=== PATIENT | male | born 1940 | race Caucasian/White ===

== ENCOUNTER 2024-08-01 07:01 | Emergency (ER) | payer OTHER, SELFPAY ==
[2024-08-01 07:03] VITALS: BP 179/100
[2024-08-01 07:04] VITALS: BP 179/100
[2024-08-01 07:15] VITALS: BMI 30.7
[2024-08-01 07:45] LABS: % Basophils 0.6 % (0-2); % Eosinophils 0.6 % (0-6); % Immature Granulocytes 0.2 % (0-0.5); % Lymphocytes 30.2 % (20.5-51.1); % Monocytes 5.6 % (1.7-9.3); % Neutrophils 62.8 % (42.2-75.2); Absolute Basophils 0.1 10^3/uL (0-0.2); Absolute Eosinophils 0.1 10^3/uL (0-0.7); Absolute Lymphocytes 2.9 10^3/uL (1.2-3.4); Absolute Monocytes 0.5 10^3/uL (0.1-0.6); Absolute Neutrophils 6.1 10^3/uL (1.4-6.5); Hematocrit 52.7 % (39.0-52.0); Hemoglobin 17.9 g/dL (13.0-18.0); Mean Corpuscular Volume 91.2 fL (80.0-94.0); Mean Platelet Volume 11.2 fL (7.4-10.4); Nucleated Red Blood Cells % 0 % (-); Platelet Count 234 10^3/uL (130-400); Red Blood Cell Count 5.78 10^6/uL (4.70-6.10); Red Cell Dist. Width 14.1 % (11.5-14.5); White Blood Cell Count 9.7 10^3/uL (4.8-10.8)
[2024-08-01 08:00] VITALS: BP 168/90
[2024-08-01 08:50] LABS: TSH Reflex To Free T4 2.12 uIU/ml (0.47-4.68)
[2024-08-01 09:00] VITALS: BP 152/96
--- NOTE | 2024-08-01 09:31 | ED.GENMED ---
History of Present Illness
General
Chief Complaint: Heart Rate Problem
Source: patient and ambulance crew (Ambulance gave 20 mg IV diltiazem en route bring heart rate from 140-160, to 60-70)
Time Seen by Provider: 08/01/24 09:20
Nursing documentation reviewed up to this point in time: agreed with
History of Present Illness
History of Present Illness:
83 yo male presents to the emergency department c/o palpitations since yesterday. He received 20 mg Cardizem IV by EMS. He denies any symptoms at this time.
Past History
Past History
ED Past Medical History: Arrthythmia, GERD, HTN and Hypercholesterolemia
Social History
Tobacco: Former smoker
Alcohol: None
Drug: None
Living: alone
Review of Systems
Review of Systems
Allergies reviewed?: Yes
All Other Systems: Not applicable
Constitutional: Reports no symptoms
EENT: Reports no symptoms
Respiratory: Reports no symptoms
Cardiac: Reports palpitations
ABD/GI: Reports no symptoms
: Reports no symptoms
Musculoskeletal: Reports no symptoms
Skin: Reports no symptoms
Neurological: Reports no symptoms
Endocrine: Reports no symptoms
Hematologic/Lymphatic: Reports no symptoms
Psychiatric: Reports no symptoms
Phy Exam
Physical Exam
Physical Exam:
Physical Exam
General: no apparent distress, not acutely ill
Neck: supple. no meningeal signs. normal posterior pharynx
Heart: s1/s2 regular rate and irregular rhythm, no murmur. equal radial
pulses.
HEENT: Pupils equal round reactive to light, EOMI
Lungs: no acute respiratory distress. clear bilaterally
Abdomen: normal bowel sounds. not tender. no CVAT
Neuro: alert and oriented. no focal neurological deficits cranial nerves II through XII intact
Skin: no rash
Psychiatric: well kept. interactive and cooperative
Extremities: no edema. no calf tenderness. negative homans. good distal pulses
Course
Orders/Labs/Results
Orders:
Orders
08/01/24 07:03
EKG [Electrocardiogram (*1)] Urgent
Reason for Study: Atrial Fibrillation
EKG- Treatment ONCE
08/01/24 07:26
Complete Blood Count/With Diff Urgent
TSH Reflex To Free T4 Urgent
08/01/24 08:57
Comprehensive Metabolic Panel Urgent
Abnormal Lab Results
08/01/24 08/01/24
07:26 08:57
Hct 52.7 H %
(39.0-52.0)
MPV 11.2 H fL
(7.4-10.4)
BUN 21 H mg/dl
(9-20)
Glucose 104 H mg/dl
(70-99)
08/01/24 07:26
08/01/24 08:57
Vital Signs
Initial and Last Documented VS:
Initial Vital Signs
Pulse Resp BP
92 15 179/100
08/01/24 07:03 08/01/24 07:03 08/01/24 07:03
Last Documented Vital Signs
Temp Pulse Resp BP Pulse Ox
98.1 F 73 11 168/90 97
08/01/24 07:04 08/01/24 08:15 08/01/24 08:15 08/01/24 08:00 08/01/24 08:15
MDM/Problems Addressed
Differential Diagnosis Includes:
Rapid atrial fibrillation
MDM/Problems Addressed:
83-year-old male with atrial fibrillation, rate controlled in ED. Stable for discharge and follow-up with cardiology.
Chronic conditions affecting care: Arrhythmia
Acute Exacerbation and/or Progression of Chronic Illness: Arrhythmia
*Pulse Oximetry
Patient hypoxic: no
*EKG
Interpreted by ED Provider?: Yes
EKG Intrepretation Date: 08/01/24
EKG Intrepretation Time: 07:05
Interpretation: abnormal
Comparison EKG: no comparison EKG present
Heart Rate: 70
Rate: normal
Rhythm: atrial flutter
[place]: normal axis
Interval: normal interval
QRS Pattern: normal QRS
Ischemia: no ischemia
*System Support Analyst Interpretation
Rate: normal
Interpretation: abnormal
Heart Rate: 70
Rhythm: atrial flutter
*Critical Care Note
Total Time (30-74mins, 75-104mins- exclusive of procedures): Not Applicable
Data Reviewed
Further Testing Considered But Not Given:
Chest x-ray not indicated
Patient Management
Social determinants of health affecting care: Living situation and Strong social support
Escalation/DeEscalation of care consider admission/obs:
Admit not indicated
ED Attending Note
-
Portions of this chart may have been created with voice recognition software.� Occasional wrong word or��sound alike� substitutions may have occurred due to the inherent limitations of voice recognition software.
Discharge Plan
Departure
Patient Disposition: Home (Routine Discharge)
Date of Disposition: 08/01/24
Time of Disposition: 10:03
Patient with high blood pressure during this ER visit?: Yes
Condition: Good
Discharge Problem:
Atrial fibrillation
Instructions: Atrial Fibrillation (DC), BLOOD PRESSURE
Referrals:
Meaghan Chong MD [Affiliate] - Call in 1-3 days for appt
NONE,* [Family Provider] -
Interventions
Interventions:
*Risk Screen - Suicide Last Done: 08/01/24 07:14
*General Assessment Last Done: 08/01/24 07:22
*Neglect/Abuse Screening Last Done: 08/01/24 07:14
ED- Fall Risk Assessment Last Done: 08/01/24 07:16
*ED COVID-19 Vaccine History Last Done: 08/01/24 07:04
ED- Cardiac Assessment Last Done: 08/01/24 07:16
ED- Pulmonary Assessment Last Done: 08/01/24 07:16
Discharge Date and Time
Print Language: DIVEHI
[2024-08-01 09:32] LABS: ALT (SGPT) 25 U/L (0-50); AST (SGOT) 32 U/L (17-59); Albumin 4.6 g/dl (3.5-5.0); Alkaline Phosphatase 93 U/L (38-126); Blood Urea Nitrogen 21 mg/dl (9-20); Calcium 9.3 mg/dl (8.4-10.2); Carbon Dioxide 26 mmol/L (22-30); Chloride 102 mmol/L (98-107); Estimated Creatinine Clearance 76 ml/min; Glucose 104 mg/dl (70-99); Potassium 4.7 mmol/L (3.5-5.1); Sodium 138 mmol/L (135-145); Total Bilirubin 1.3 mg/dl (0.2-1.3); Total Protein 7.7 g/dl (6.3-8.2); eGFR > 60.00
[2024-08-01 10:27] VITALS: BP 163/94
[2024-08-01 10:40] VITALS: BP 163/94
== END 2024-08-01 10:40 | disposition home or self-care (01) ==
LOC: EMR 07:01
PROVIDERS: EMERGENCY PHYSICIAN Emergency Medicine
DX: I48.91 Unspecified atrial fibrillation (principal); K21.9 Gastro-esophageal reflux disease without esophagitis; E78.00 Pure hypercholesterolemia, unspecified; I10 Essential (primary) hypertension; Z87.891 Personal history of nicotine dependence
CPT/HCPCS: 99283; 80053; 84443; 85025; 93005